=== PATIENT | female | born 1985 | race Two or more races ===

== ENCOUNTER 2020-12-02 02:24 | Emergency (ER) | payer MEDICAID ==
[~2020-12-02] VITALS: Ht 162.6 cm; Wt 64.0 kg
--- NOTE | 2020-12-02 02:40 | NUR ---
PT BIBS WITH C/O OF SOB FOR 3 DAYS UNRELIEVED BY INHALERS. PT ALERT AND ORIENTED X4. PT AMBULATORY AND NON FEBRILE.
[2020-12-02] MEDS ORDERED: DEXAMETHASONE SOD PHOSPHATE 10 MG/ML VIAL ONE (02:50)
[2020-12-02] MEDS ORDERED: ALBUTEROL FS 2.5 MG/0.5 ML VIAL.NEB ONE (02:57)
[2020-12-02] MEDS ORDERED: ALBUTEROL FS 2.5 MG/0.5 ML VIAL.NEB NEB ONE (03:00)
[2020-12-02] MEDS ORDERED: DEXAMETHASONE SOD PHOSPHATE 4 MG/ML VIAL IM ONE (03:00)
[2020-12-02] MEDS ORDERED: PRED50TA PO (03:41)
[2020-12-02] MEDS ORDERED: ALBU0.633 NEB (03:41)
[2020-12-02 03:54] VITALS: BP 120/70
--- NOTE | 2020-12-02 03:54 | NUR ---
Patient discharged to home in stable condition. Written and verbal after care instructions given. Patient verbalizes understanding of instruction. RX given
== END 2020-12-02 03:55 | disposition home or self-care (01) ==
LOC: ER 02:29
DX: J45.909 Unspecified asthma, uncomplicated (principal); Z79.899 Other long term (current) drug therapy
CPT/HCPCS: 94640; 96372; 99283; J1100

== ENCOUNTER 2022-03-06 21:12 | Emergency (ER) | payer MEDICAID ==
[~2022-03-06] VITALS: Ht 162.6 cm; Wt 59.0 kg
[~2022-03-06 21:12] MED LIST: ALBU0.633 NEB; PRED50TA PO
[2022-03-06] MEDS ORDERED: predniSONE 50 MG TABLET PO ONE (21:30)
[2022-03-06] MEDS ORDERED: ALBUTEROL FS 2.5 MG/3 ML VIAL.NEB CONTNEB ONE (21:30)
--- NOTE | 2022-03-06 21:31 | NUR ---
TO ER BED 7. BIBS C/O COUGH AND SOB. PT STATES "RAN OUT OF INHALER". PT IS ALERT AND ORIENTED. AMBULATORY WITH STEADY GAIT. CONNECTED TO POX AND HEART MONITOR. VSS. AWAITING MD AGUILAR
[2022-03-06] MEDS ORDERED: ALBUTEROL FS 2.5 MG/3 ML VIAL.NEB ONE (21:35)
[2022-03-06] MEDS ORDERED: predniSONE 20 MG TABLET ONE (21:45)
[2022-03-06] MEDS ORDERED: ALBU18HF2 INH (21:48)
[2022-03-06] MEDS ORDERED: PRED20TA PO (21:48)
--- NOTE | 2022-03-06 22:08 | NUR ---
Patient discharged to home in stable condition. Written and verbal after care instructions given. Patient verbalizes understanding of instruction.
--- NOTE | 2022-03-06 23:46 | NUR ---
Magali crespo in ED - 03/07/22 at 0030 by ELVIA Patient discharged to home in stable condition. Written and verbal after care instructions given. Patient verbalizes understanding of instruction. patient left in a wheel chair
[2022-03-07 00:13] VITALS: BP 117/68
== END 2022-03-06 22:08 | disposition home or self-care (01) ==
LOC: ER 21:13
DX: R06.02 Shortness of breath (principal); J45.909 Unspecified asthma, uncomplicated; Z60.2 Problems related to living alone; Z79.899 Other long term (current) drug therapy

== ENCOUNTER 2023-02-05 11:50 | Emergency (ER) | payer MEDICAID ==
[~2023-02-05] VITALS: Ht 154.9 cm; Wt 56.7 kg
[~2023-02-05 11:50] MED LIST changes: +ALBU18HF2 INH; +PRED20TA PO
[2023-02-05 12:15] VITALS: BP 112/57
[2023-02-05] MEDS ORDERED: AMOX500T2 PO (12:27)
[2023-02-05] MEDS ORDERED: IBUPROFEN 600 MG TABLET ONE (12:27)
[2023-02-05] MEDS ORDERED: AMOXICILLIN TRIHYDRATE 250 MG CAPSULE ONE (12:27)
[2023-02-05] MEDS ORDERED: IBUPROFEN 600 MG TABLET PO ONE (12:30)
[2023-02-05] MEDS ORDERED: AMOXICILLIN TRIHYDRATE 500 MG CAPSULE PO ONE (12:30)
[2023-02-05 12:39] VITALS: O2SAT 100
== END 2023-02-05 12:39 | disposition home or self-care (01) ==
LOC: ER 11:50
DX: J02.9 Acute pharyngitis, unspecified (principal); J45.909 Unspecified asthma, uncomplicated; Z98.890 Other specified postprocedural states; Z79.899 Other long term (current) drug therapy; Z60.2 Problems related to living alone

== ENCOUNTER 2023-05-07 10:12 | Emergency (ER) | payer MEDICAID ==
[~2023-05-07] VITALS: Ht 162.6 cm; Wt 59.0 kg
[~2023-05-07 10:12] MED LIST changes: +AMOX500T2 PO
[2023-05-07] MEDS ORDERED: predniSONE 20 MG TABLET PO ONE (11:30)
[2023-05-07] MEDS ORDERED: IPRATROPIUM NEB FS 0.5 MG/2.5 ML AMPUL.NEB NEB ONE (11:30)
[2023-05-07] MEDS ORDERED: ALBUTEROL FS 2.5 MG/3 ML VIAL.NEB NEB ONE (11:30)
[2023-05-07] MEDS ORDERED: predniSONE 20 MG TABLET ONE ×2 (11:36)
[2023-05-07] MEDS ORDERED: methylPREDNISolone SOD SUCC 40 MG/ML VIAL ONE (11:44)
[2023-05-07] MEDS ORDERED: ALBUTEROL FS 2.5 MG/3 ML VIAL.NEB ONE (11:57)
[2023-05-07] MEDS ORDERED: IPRATROPIUM NEB FS 0.5 MG/2.5 ML AMPUL.NEB ONE (11:58)
[2023-05-07] MEDS ORDERED: methylPREDNISolone SOD SUCC 40 MG/ML VIAL IM ONE (12:00)
[2023-05-07 12:11] VITALS: O2SAT 94
[2023-05-07 12:22] VITALS: O2SAT 93
[2023-05-07] MEDS ORDERED: diphenhydrAMINE HCL 50 MG/ML VIAL IM ONE (12:30)
[2023-05-07] MEDS ORDERED: ALBU18HF2 INH (12:32)
[2023-05-07] MEDS ORDERED: PRED50TA PO (12:32)
[2023-05-07] MEDS ORDERED: diphenhydrAMINE HCL 50 MG/ML VIAL ONE (12:44)
[2023-05-07 12:53] VITALS: BP 122/82; TEMP 98; O2SAT 98
== END 2023-05-07 12:54 | disposition home or self-care (01) ==
LOC: ER 10:16
DX: J45.901 Unspecified asthma with (acute) exacerbation (principal); J06.9 Acute upper respiratory infection, unspecified; R05.9 Cough, unspecified; Z60.2 Problems related to living alone; Z79.51 Long term (current) use of inhaled steroids; Z79.899 Other long term (current) drug therapy; Z20.822 Contact with and (suspected) exposure to COVID-19
CPT/HCPCS: 99284; 71045; 87426; 96372; 87804 ×2; 94640; J7512 ×2; J2920; J1200

== ENCOUNTER 2023-06-30 19:50 | Emergency (ER) | payer MEDICAID, OTHER ==
[~2023-06-30] VITALS: Ht 162.6 cm; Wt 62.1 kg
[2023-06-30 22:17] VITALS: TEMP 98.3
[2023-06-30 23:56] LABS: BASOPHILS # (AUTO) 0.1 K/uL (0.0-0.2); BASOPHILS % (AUTO) 0.7 % (0.0-2.0); EOSINOPHILS # (AUTO) 0.3 K/uL (0.0-0.7); EOSINOPHILS % (AUTO) 3.5 % (0.0-6.0); HEMATOCRIT 40 % (33-45); HEMOGLOBIN 13.2 g/dL (11.5-14.8); LYMPHOCYTES # (AUTO) 2.7 K/uL (0.8-4.8); LYMPHOCYTES % (AUTO) 34.3 % (20.0-44.0); MEAN CORPUSCULAR HEMOGLOBIN 30 PG (26.0-33.0); MEAN CORPUSCULAR HGB CONC 33 g/dl (31.0-36.0); MEAN CORPUSCULAR VOLUME 90 fL (82-100); MONOCYTES # (AUTO) 0.6 K/uL (0.1-1.30); NEUTROPHILS # (AUTO) 4.3 K/uL (1.8-8.9); NEUTROPHILS % (AUTO) 54.5 % (43.0-81.0); PLATELET COUNT (AUTO) 265 K/uL (150-450); RED CELL DISTRIBUTION WIDTH 13.4 % (11.5-15.0)
[2023-07-01 00:05] LABS: CALCIUM, SERUM 8.6 mg/dL (8.5-10.1); CARBON DIOXIDE 25 mmol/L (21-32); CHLORIDE 105 mmol/L (98-107); CREATININE 0.7 mg/dL (0.6-1.3); GLUCOSE 92 mg/dL (74-106); POTASSIUM 3.8 mmol/L (3.5-5.1); SODIUM SERUM 138 mmol/L (136-145); UREA NITROGEN, BLOOD 17 mg/dL (7-18)
[2023-07-01 00:18] LABS: THYROID STIMULATING HORMONE 0.606 uIU/mL (0.358-3.74)
[2023-07-01 01:12] LABS: PREGNANCY TEST URINE QUAL NEGATIVE (NEGATIVE)
[2023-07-01 01:39] LABS: ALBUMIN 3.5 g/dL (3.4-5.0); BILIRUBIN,DIRECT 0.1 mg/dL (0.0-0.2); BILIRUBIN,TOTAL 0.7 mg/dL (0.2-1.0); TOTAL PROTEIN, SERUM 7.1 g/dL (6.4-8.2)
[2023-07-01 02:48] VITALS: BP 112/81; O2SAT 99
== END 2023-07-01 02:49 | disposition home or self-care (01) ==
LOC: ER 19:54
DX: N64.4 Mastodynia (principal); R53.83 Other fatigue; J45.909 Unspecified asthma, uncomplicated; Z60.2 Problems related to living alone; Z79.899 Other long term (current) drug therapy; Z20.822 Contact with and (suspected) exposure to COVID-19
CPT/HCPCS: 36415; 71045-TC; 76642-RT-TC; 80048-TC; 80076-TC; 83690-TC; 84443-TC; 84484-TC; 84703-TC; 85025-TC

== ENCOUNTER 2023-12-06 00:10 | Emergency (ER) | payer OTHER ==
[~2023-12-06] VITALS: Ht 162.6 cm; Wt 59.0 kg
[2023-12-06 01:28] LABS: BASOPHILS # (AUTO) 0.1 K/uL (0.0-0.2); BASOPHILS % (AUTO) 0.6 % (0.0-2.0); EOSINOPHILS # (AUTO) 0.2 K/uL (0.0-0.7); EOSINOPHILS % (AUTO) 2.2 % (0.0-6.0); HEMATOCRIT 44 % (33-45); HEMOGLOBIN 14.5 g/dL (11.5-14.8); LYMPHOCYTES # (AUTO) 3.5 K/uL (0.8-4.8); LYMPHOCYTES % (AUTO) 32.5 % (20.0-44.0); MEAN CORPUSCULAR HEMOGLOBIN 29 PG (26.0-33.0); MEAN CORPUSCULAR HGB CONC 33 g/dl (31.0-36.0); MEAN CORPUSCULAR VOLUME 90 fL (82-100); MONOCYTES # (AUTO) 0.6 K/uL (0.1-1.30); NEUTROPHILS # (AUTO) 6.3 K/uL (1.8-8.9); NEUTROPHILS % (AUTO) 58.7 % (43.0-81.0); PLATELET COUNT (AUTO) 319 K/uL (150-450); RED BLOOD CELL COUNT(AUTO) 4.93 MIL/uL (4.0-5.2); RED CELL DISTRIBUTION WIDTH 13.5 % (11.5-15.0); WHITE BLOOD COUNT (AUTO) 10.8 K/uL (4.3-11.0)
[2023-12-06 01:32] LABS: APPEARANCE,URINE CLEAR (CLEAR); BILIRUBIN,URINE NEGATIVE (NEGATIVE); BLOOD, URINE NEGATIVE Ery/uL (NEGATIVE); COLOR,URINE YELLOW (YELLOW); KETONES,URINE NEGATIVE (NEGATIVE); LEUKOCYTE ESTERASE ,URINE NEGATIVE (NEGATIVE); NITRITE, URINE NEGATIVE (NEGATIVE); PROTEIN,URINE NEGATIVE (NEGATIVE); UGLUCOSE NEGATIVE (NEGATIVE); UROBILINOGEN,URINE 0.2 EU/dL (0.2)
[2023-12-06 01:35] LABS: CALCIUM, SERUM 9.6 mg/dL (8.5-10.1); CARBON DIOXIDE 26 mmol/L (21-32); CHLORIDE 102 mmol/L (98-107); CREATININE 0.9 mg/dL (0.6-1.3); GLUCOSE 94 mg/dL (74-106); POTASSIUM 3.5 mmol/L (3.5-5.1); SODIUM SERUM 137 mmol/L (136-145); UREA NITROGEN, BLOOD 17 mg/dL (7-18)
[2023-12-06 01:35] LABS: PREGNANCY TEST URINE QUAL NEGATIVE (NEGATIVE)
[2023-12-06 01:39] LABS: AMPHETAMINE, URINE NEGATIVE (NEGATIVE); BARBITURATE, URINE NEGATIVE (NEGATIVE); BENZODIAZEPINE, URINE NEGATIVE (NEGATIVE); COCCAINE, URINE NEGATIVE (NEGATIVE); OPIATE, URINE NEGATIVE (NEGATIVE); PHENCYCLIDINE SCREEN,URINE NEGATIVE (NEGATIVE)
[2023-12-06 01:40] LABS: CANNABINOID, URINE POSITIVE (NEGATIVE)
[2023-12-06 01:41] LABS: ALANINE AMINOTRANSFERASE 12 U/L (12-78); ALCOHOL, BLOOD < 3 mg/dL (0-10); ALKALINE PHOSPHATASE 53 U/L (46-116); ASPARTATE AMINOTRANSFERASE 6 U/L (15-37); BILIRUBIN,DIRECT 0.2 mg/dL (0.0-0.2); BILIRUBIN,TOTAL 0.8 mg/dL (0.2-1.0); TOTAL PROTEIN, SERUM 8.3 g/dL (6.4-8.2)
[2023-12-06 01:50] LABS: ACETAMINOPHEN <10 ug/ml (10-30); SALICYLATE < 2.3 mg/dL (2.8-20.0)
[2023-12-06 08:30] VITALS: BP 102/61; TEMP 98; O2SAT 97
== END 2023-12-06 11:55 ==
LOC: ER 00:11
DX: R45.851 Suicidal ideations (principal); F12.90 Cannabis use, unspecified, uncomplicated; R10.2 Pelvic and perineal pain; J45.909 Unspecified asthma, uncomplicated; Z79.1 Long term (current) use of non-steroidal anti-inflammatories (NSAID); Z79.52 Long term (current) use of systemic steroids; Z98.890 Other specified postprocedural states; Z79.899 Other long term (current) drug therapy; Z20.822 Contact with and (suspected) exposure to COVID-19; Z60.2 Problems related to living alone
CPT/HCPCS: 36415; 80048-TC; 80076-TC; 84703-TC; 85025-TC; G0480

== ENCOUNTER 2024-02-08 19:32 | Emergency (ER) | payer OTHER ==
[~2024-02-08] VITALS: Ht 162.6 cm; Wt 61.2 kg
[2024-02-08 20:21] VITALS: TEMP 98.1
[2024-02-08] MEDS ORDERED: AMOX-430 PO (20:58)
[2024-02-08] MEDS ORDERED: dexaMETHasone SOD PHOSPHATE 1 ML ONE (21:02)
[2024-02-08] MEDS ORDERED: AMOX/CLAVULANATE 875 MG TABLET ONE (21:02)
[2024-02-08] MEDS ORDERED: ALBU18HF2 INH (21:08)
[2024-02-08] MEDS: AMOX/CLAVULANATE 875 MG TABLET PO ONE (21:08)
[2024-02-08] MEDS: dexaMETHasone SOD PHOSPHATE 10 MG/ML VIAL IM ONE (21:08)
[2024-02-08 21:17] VITALS: BP 112/59; O2SAT 100
== END 2024-02-08 21:18 | disposition home or self-care (01) ==
LOC: ER 19:42
DX: J02.9 Acute pharyngitis, unspecified (principal); B34.9 Viral infection, unspecified; F12.90 Cannabis use, unspecified, uncomplicated; J45.909 Unspecified asthma, uncomplicated; Z79.52 Long term (current) use of systemic steroids; Z87.42 Personal history of other diseases of the female genital tract; Z60.2 Problems related to living alone
CPT/HCPCS: 99283; 96372; 87804 ×2; J1100

== ENCOUNTER 2024-03-20 03:19 | Emergency (ER) | payer OTHER ==
[~2024-03-20] VITALS: Ht 162.6 cm; Wt 61.2 kg
[~2024-03-20 03:19] MED LIST changes: +AMOX-430 PO
[2024-03-20] MEDS ORDERED: ALBU18HF2 INH (04:37)
[2024-03-20 04:54] VITALS: BP 120/80; TEMP 98.3; O2SAT 98
== END 2024-03-20 04:55 | disposition home or self-care (01) ==
LOC: ER 03:26
DX: J06.9 Acute upper respiratory infection, unspecified (principal); B97.89 Other viral agents as the cause of diseases classified elsewhere; F12.90 Cannabis use, unspecified, uncomplicated; J45.909 Unspecified asthma, uncomplicated; Z76.0 Encounter for issue of repeat prescription; Z79.52 Long term (current) use of systemic steroids; Z60.2 Problems related to living alone
CPT/HCPCS: 71045-TC

== ENCOUNTER 2024-07-01 19:19 | Emergency (ER) | payer OTHER ==
[~2024-07-01] VITALS: Ht 162.6 cm; Wt 63.5 kg
[2024-07-01] MEDS ORDERED: predniSONE 20 MG TABLET ONE (20:42)
[2024-07-01] MEDS: predniSONE 50 MG TABLET PO ONE (20:45)
[2024-07-01] MEDS: predniSONE 20 MG TABLET PO ONE (20:47)
[2024-07-01 21:08] VITALS: O2SAT 98
[2024-07-01] MEDS ORDERED: ALBUTEROL FS 2.5 MG/0.5 ML VIAL.NEB ONE (21:09)
[2024-07-01] MEDS ORDERED: IPRATROPIUM NEB FS 0.5 MG/2.5 ML AMPUL.NEB ONE (21:09)
[2024-07-01] MEDS: ALBUTEROL FS 2.5 MG/0.5 ML VIAL.NEB NEB ONE (21:10)
[2024-07-01] MEDS: IPRATROPIUM NEB FS 0.5 MG/2.5 ML AMPUL.NEB NEB ONE (21:10)
[2024-07-01 21:23] VITALS: O2SAT 99
[2024-07-01] MEDS ORDERED: ALBU1.257 NEB (21:28)
[2024-07-01] MEDS ORDERED: ALBU18HF2 INH (21:28)
[2024-07-01] MEDS ORDERED: PRED50TA PO (21:28)
[2024-07-01 21:32] VITALS: BP 119/70; TEMP 98.4; O2SAT 100
== END 2024-07-01 21:32 | disposition home or self-care (01) ==
LOC: ER 19:21
DX: J45.901 Unspecified asthma with (acute) exacerbation (principal); F12.90 Cannabis use, unspecified, uncomplicated; Z79.52 Long term (current) use of systemic steroids; Z60.2 Problems related to living alone
CPT/HCPCS: 99283; 71045; 94640; J7512

== ENCOUNTER 2024-12-12 11:52 | Emergency (ER) | payer OTHER ==
[~2024-12-12] VITALS: Ht 162.6 cm; Wt 65.3 kg
[~2024-12-12 11:52] MED LIST changes: +ALBU1.257 NEB
[2024-12-12 12:05] VITALS: TEMP 98.4
[2024-12-12] MEDS: IV NS 0.9% 1,000 ML BAG IV ONE (13:00)
[2024-12-12] MEDS ORDERED: ACETAMINOPHEN 325 MG TABLET ONE (13:14)
[2024-12-12] MEDS ORDERED: KETOROLAC TROMETHAMINE 15 MG/ML VIAL ONE (13:14)
[2024-12-12] MEDS ORDERED: dexaMETHasone SOD PHOSPHATE 1 ML ONE (13:14)
[2024-12-12] MEDS: ACETAMINOPHEN 325 MG TABLET PO ONE (13:15)
[2024-12-12] MEDS: KETOROLAC TROMETHAMINE 15 MG/ML VIAL IV ONE (13:15)
[2024-12-12] MEDS: dexaMETHasone SOD PHOSPHATE 10 MG/ML VIAL IV ONE (13:15)
[2024-12-12] MEDS ORDERED: IBUP-1955 PO (13:16)
[2024-12-12] MEDS ORDERED: ALBU18HF2 INH (13:16)
[2024-12-12] MEDS ORDERED: BENZ-13 PO (13:16)
[2024-12-12 14:31] VITALS: BP 129/69; O2SAT 98
== END 2024-12-12 14:40 | disposition home or self-care (01) ==
LOC: ER 11:57
DX: J06.9 Acute upper respiratory infection, unspecified (principal); R05.9 Cough, unspecified; R09.81 Nasal congestion; J45.909 Unspecified asthma, uncomplicated; F12.90 Cannabis use, unspecified, uncomplicated; Z79.52 Long term (current) use of systemic steroids; Z60.2 Problems related to living alone; Z79.899 Other long term (current) drug therapy; Z20.822 Contact with and (suspected) exposure to COVID-19
CPT/HCPCS: J1100; J1885; J7030